=== PATIENT | male | born 1975 | race Caucasian/White ===

== ENCOUNTER 2017-04-20 22:04 | Emergency (ER) | payer OTHER ==
[~2017-04-20] VITALS: Ht 185.4 cm; Wt 118.8 kg
[2017-04-20 22:10] VITALS: TEMP 37; Ht 185.4 cm; Wt 118.8 kg
[2017-04-20] MEDS ORDERED: METF-384 PO (23:04)
[2017-04-20] MEDS ORDERED: MELO15TA4 PO (23:04)
[2017-04-20] MEDS ORDERED: PRAV20TA PO (23:04)
[2017-04-20] MEDS ORDERED: METO25TA56 PO (23:04)
[2017-04-20] MEDS ORDERED: GLIM1TAB2 PO (23:04)
[2017-04-20] MEDS ORDERED: PARO10TA3 PO (23:04)
[2017-04-20] MEDS ORDERED: LISI-461 PO (23:04)
[2017-04-21 00:17] VITALS: BP 141/108; PULSE 73; O2SAT 96
--- NOTE | 2017-04-21 05:26 | EMERGENCY ROOM VISIT NOTE ---
History First contact with patient: 22:43 Chief Complaint: LEG PAIN,LEG INJURY Stated Complaint: NUMBNESS FROM KNEE TO FOOT, RIGHT History of Present Illness The patient is a 42 year old male who presents to the Emergency Room with complaints of intermittent numbness and tingling along the lateral aspect of his right lower leg from the knee to the foot over the past one day. The patient states that he did have a fall 2 days ago, and shortly thereafter began with symptoms. The patient did not think much of the fall and states he did not injure his back or strike the knee itself. The patient is not experiencing back pain, saddle paresthesias, or difficulty using the bathroom. He is a diabetic controlled with diet and oral pills. The patient has not had fever or chills. No significant recent travel history. He rates his discomfort a 2/10. Review of Systems More than 10 systems were reviewed and otherwise negative with the exception of history of present illness. Past Medical/Surgical History History of diabetes Social History Smoking Status: Current Every Day Smoker Current/Historical Medications Scheduled Glimepiride (Glimepiride), 1 MG PO BID Lisinopril (Zestril), 10 MG PO DAILY Meloxicam (Mobic), 15 MG PO DAILY Metformin Hcl (Glucophage), 1,000 MG PO BIDM Metoprolol Tartrate (Lopressor) (Lopressor), 25 MG PO BID Paroxetine HCl (Paroxetine), 10 MG PO DAILY Pravastatin (Pravachol ), 20 MG PO DAILY Physical Exam Vital Signs Date Time Temp Pulse Resp B/P (MAP) Pulse Ox O2 Delivery O2 Flow Rate FiO2 04/21/17 00:17 73 20 141/108 96 04/20/17 22:10 37.0 79 18 177/95 97 Room Air Pain Rating (0-10): 0 Physical Exam VITALS: Vitals are noted on the nurse's note and reviewed by myself. Vital signs stable. GENERAL: Well-developed, well-nourished, white male, who is in no acute distress and resting comfortably. Patient is cooperative with the examination. HEAD: Normocephalic atraumatic. HEART: Regular rate and rhythm without murmurs gallops or rubs. LUNGS: Clear to auscultation bilaterally without wheezes, rales or rhonchi. No retractions or accessory muscle use. MUSCULOSKELETAL: No muscle atrophy, erythema, or edema noted. No evidence of infection of the right lower extremity. The patient is without obvious neurovascular deficit to the right lower extremity. Sensation and range of motion appears fully intact. No posterior calf tenderness. No palpable cord. No saddle paresthesias. No tenderness of the lower lumbar spine or SI joint. NEURO: Patient was alert and oriented to person place and time. CN II through XII grossly intact. Deep tendon reflexes 2+ throughout. Medical Decision & Procedures Laboratory Results Test 04/20/17 23:02 Bedside Glucose 394 mg/dl (70-99) ED Course Physical exam and history were performed. Nursing notes, EMR, and Medication List were personally reviewed. Patient appears to have reports of vague right lower leg intermittent numbness. On examination the patient appears intact neurologically. He did have a fall a few days ago, and because of this I did elect to perform x-rays of his back and knee. Both of these are without significant acute findings. The patient is diabetic, and his bedside glucose was 394. Evidently he has not taken his metformin today. I discussed options of care with the patient, who overall appears well for discharge home. I feel that he would likely do well with steroids, however I do not want to significantly reduce sugar. Evidently he does have meloxicam at home, and was asked to utilize this medication. His symptoms certainly could be the result of diabetic neuropathy, and he really needs to follow with his primary care physician for further management. The patient voiced understanding of this plan and was invited back to the ER with any new, worsening, or concerning symptoms. The chart was completed utilizing [employer] Speech Voice Recognition Software. Grammatical errors, random word insertions, pronoun errors, and incomplete sentences are an occasional consequence of this system due to software limitations, ambient noise, and hardware issues. Any formal questions or concerns about the content, text, or information contained within the body of this dictation should be directly addressed to the provider for clarification. . Medical Decision Differential diagnosis includes, but is not limited to: Sprain, strain, fracture , dislocation, subluxation, contusion, neuropathy, sciatica, and others Impression Primary Impression: Numbness in right leg Additional Impression: Elevated blood sugar Departure Information Dispostion Home / Self-Care Condition GOOD Forms HOME CARE DOCUMENTATION FORM, IMPORTANT VISIT INFORMATION Patient Instructions My [facility] Additional Instructions You were seen and evaluated today on an emergency basis only. This is not a substitute for, or an effort to provide, complete comprehensive medical care. It is not possible to recognize and treat all injuries or illnesses in a single emergency department visit. For this reason it is recommended that you followup with your primary care physician this week for ongoing care and evaluation. Continue your anti-inflammatory medication at home. Your symptoms may be the result of high blood sugar. You may need additional medication to help with your sugar. You are welcome to return to the emergency department anytime with new, worsening, or concerning symptoms. Problem Qualifiers
--- NOTE | 2017-04-21 06:59 | DIAGNOSTIC IMAGING REPORT ---
RIGHT KNEE 3 VIEWS CLINICAL HISTORY: 42 years-old Male presenting with RLE numbness Right. TECHNIQUE: Frontal, lateral, and sunrise views of the right knee were obtained. COMPARISON: None. FINDINGS: No acute fracture or malalignment. Minimal marginal osteophyte noted at the lateral patellar facet. No joint space narrowing or significant medial or lateral compartment degenerative change. Trace knee effusion may be present. IMPRESSION: No acute osseous injury of the right knee. Electronically signed by: Michael Mcdermott M.D. 04/21/2017 6:58 AM Dictated Date/Time: 04/21/2017 6:57 AM
--- NOTE | 2017-04-21 07:04 | DIAGNOSTIC IMAGING REPORT ---
L-SPINE MIN 4 VIEWS ROUTINE CLINICAL HISTORY: 42 years-old Male presenting with RLE numbness. TECHNIQUE: Frontal, bilateral oblique, and lateral views of the lumbar spine as well as coned in lateral view of the lumbosacral junction were obtained. COMPARISON: None. FINDINGS: Normal lumbar lordosis. Vertebral body heights and intervertebral disc space preserved. Mild extra curvature of the lumbar spine centered at L2-3. No osseous neural foraminal narrowing. Mild anterior osteophytosis noted at L2-3 without significant degenerative change elsewhere. No radiographic evidence of acute fracture or subluxation. Moderate stool burden in the right colon. Few scattered surgical clips noted. IMPRESSION: Mild degenerative change at L2-3 without radiographic evidence of osseous neural foraminal narrowing or acute osseous injury. Electronically signed by: Michael Mcdermott M.D. 04/21/2017 7:03 AM Dictated Date/Time: 04/21/2017 7:01 AM
== END 2017-04-21 00:21 | disposition home or self-care (01) ==
LOC: C.EDB 22:05 → C.EDA 04-21 00:21
DX: R20.0 Anesthesia of skin (principal); E11.65 Type 2 diabetes mellitus with hyperglycemia; F17.210 Nicotine dependence, cigarettes, uncomplicated; Z79.899 Other long term (current) drug therapy

== ENCOUNTER 2017-11-09 20:40 | Emergency (ER) | payer OTHER ==
[~2017-11-09] VITALS: Ht 185.4 cm; Wt 114.9 kg
[~2017-11-09 20:40] MED LIST: MELO-84 PO; PARO10TA3 PO
[2017-11-09 20:42] VITALS: TEMP 37.1; Ht 185.4 cm; Wt 114.9 kg
[2017-11-09] MEDS ORDERED: MoRPHine SULFATE 4 MG/ML 1 ML CARP\\VIAL IV STA (21:04)
[2017-11-09] MEDS ORDERED: ONDANSETRON INJ 2 MG/ML 2 ML VIAL IV STA (21:04)
[2017-11-09] MEDS ORDERED: CLINDAMYCIN 600 MG/54 ML D5W IV ONE (21:15)
[2017-11-09] MEDS ORDERED: OPTIRAY 320 IV PRN (21:15)
[2017-11-09] MEDS ORDERED: ACET-1256 PO (21:32)
[2017-11-09 21:43] LABS: BASO % 0.5 %; BASO ABS # 0.05 K/uL (0-0.2); EOS % 4.4 %; EOS ABS # 0.46 K/uL (0-0.5); HEMATOCRIT 53.9 % (42-52); HEMOGLOBIN 19.7 g/dL (14.0-18.0); LYMPH % 28.4 %; LYMPH ABS # 2.98 K/uL (1.2-3.4); MEAN CELL VOLUME 89.8 fL (80-100); MEAN CORPUSCULAR HEMOGLOBIN 32.8 pg (25-34); MEAN CORPUSCULAR HGB CONC 36.5 g/dl (32-36); MEAN PLATELET VOLUME 10.6 fL (7.4-10.4); MONO % 7.3 %; MONO ABS # 0.77 K/uL (0.11-0.59); NEUT % 58.4 %; NEUT ABS # 6.15 K/uL (1.4-6.5); PLATELET COUNT 277 K/uL (130-400); RED CELL DISTRIBUTION WIDTH CV 13.1 % (11.5-14.5); RED CELL DISTRIBUTION WIDTH SD 42.8 fL (36.4-46.3); WHITE BLOOD COUNT 10.51 K/uL (4.8-10.8)
[2017-11-09] MEDS ORDERED: ACETAMINOPHEN IV 100 ML IV ONE (21:45)
[2017-11-09 22:04] LABS: CALCIUM 9.3 mg/dl (8.5-10.1); CREATININE 1.01 mg/dl (0.60-1.40)
--- NOTE | 2017-11-09 22:50 | DIAGNOSTIC IMAGING REPORT ---
MAXILLOFACIAL CT WITH INTRAVENOUS CONTRAST HISTORY: hx dental abscess, worsing right facial pain, visual changes TECHNIQUE: Multiaxial CT images of the maxillofacial region were performed and reformatted in the coronal plane following the use of intravenous contrast. COMPARISON STUDY: None. FINDINGS: Small periapical lucencies measuring up to 4 mm at the roots of ADA 5. One of these demonstrates cortical breakthrough along the buccal surface best seen on image 104. Multiple dental caries are identified throughout the teeth. There is also a tiny periapical lucency at ADA 4 with an adjacent abscess along the buccal surface of the maxilla. This is best in image 150 and measures 11 x 5 mm. Mild subcutaneous gas tracking within the right maxillary/mandibular location consistent with a cellulitis. The visualized brain parenchyma and orbits are unremarkable. Paranasal sinuses and sulci are clear. A few mildly enlarged right submandibular lymph nodes are likely reactive. Prevertebral soft tissues and the epiglottis are normal in thickness. IMPRESSION: 1. An 11 x 5 mm abscess abutting the buccal surface of the right maxilla adjacent to the tiny periapical lucency at ADA 4. 2. There are also small periapical lucencies at ADA 5. Electronically signed by: Samson Oliveira M.D. 11/09/2017 10:48 PM Dictated Date/Time: 11/09/2017 10:40 PM
[2017-11-09] MEDS ORDERED: PRAV20TA PO (23:04)
[2017-11-09] MEDS ORDERED: GLIM1TAB2 PO (23:04)
[2017-11-09] MEDS ORDERED: LISI-461 PO (23:04)
[2017-11-09] MEDS ORDERED: METF-384 PO (23:04)
[2017-11-09] MEDS ORDERED: METO25TA56 PO (23:04)
[2017-11-09] MEDS ORDERED: NORCO 5/325MG HOME PACK PO ONE (23:15)
[2017-11-09] MEDS ORDERED: HYDR-5688 PO (23:16)
[2017-11-09 23:23] VITALS: BP 152/86; PULSE 70; O2SAT 97
--- NOTE | 2017-11-10 02:21 | EMERGENCY ROOM VISIT NOTE ---
ED Visit Note First contact with patient: 20:55 Chief Complaint: Right sided facial pain. History of Present Illness: Mr. Chisholm is a 42-year-old white female who ambulates into the complaining of right sided facial pain. Patient reports he was seen by his PCP 4 days ago and diagnosed with a dental abscess. He was placed on clindamycin and reports he has been taking his medication as prescribed. Patient reports his pain has been constant for the last 4 days. He reports he has had no relief from using his antibiotics. Currently he describes his pain as a burning sensation starting just lateral to the right nostril and extending up the face into the inferior aspect of the right orbit and into the anterior right side of the neck. He rates his discomfort 6/10. He denies radiation of his pain. He has not been taking acetaminophen for pain prior to arrival at the hospital without relief of his discomfort. Associated with his pain he reports he has been having chills but no sonia fevers. Associated with his pain he reports he has mild visual changes of the right eye, a decreased appetite and his blood sugar has been elevated. He denies headache, dizziness, lightheadedness, hearing changes some throat pain , difficulty swallowing, difficulty speaking, flashing lights, floaters, eye drainage, decrease in overall vision, chest pain, shortness of breath, abdominal pain, nausea, vomiting. Review of Systems: As noted above in history of present illness. All body systems were reviewed and found to be negative as noted above. Past Medical History: Diabetes, heart disease, hypertension, status post hernia repair, bowel reconstruction, cardiac ablation. Current Medications: Mobic, Pravachol, Zestril, Glucophage, Lopressor, acetaminophen and glimepiride. Allergies to Medications: Amoxicillin, ciprofloxacin, NicoDerm. Social History: Patient is currently employed; he feels safe in his home environment; he admits to tobacco use and denies alcohol use. Physical Examination: Vital Signs: Date Time Temp Pulse Resp B/P (MAP) Pulse Ox O2 Delivery O2 Flow Rate FiO2 11/09/17 23:23 70 20 152/86 97 11/09/17 22:41 73 20 154/84 96 Room Air 11/09/17 21:50 75 20 135/87 91 Room Air 11/09/17 21:22 87 22 157/87 96 Room Air 11/09/17 20:42 37.1 87 16 146/87 97 Room Air GENERAL: 42-year-old male in moderate distress due to pain, nontoxic-appearing, afebrile and hemodynamically stable. NEUROLOGICAL: Awake, alert and oriented to person, place and time. Answering questions appropriately and following commands. Normal gait. Good hand eye coordination. No focal motor or sensory deficits. SKIN: Warm, dry and pink. HEENT: Atraumatic and normocephalic. Face: Moderate erythema and tenderness over the right side of the face extending just inferior to the nose on the right and extending superiorly to the inferior orbital area. The skin is warm to the touch but does not appear cellulitic. There is no lymphangitis. No palpable abscesses. Able to distinguish light sensations to all dermatomes of the face. No facial drooping. PERRLA. EOMI without nystagmus. Sclera white and conjunctiva pink without drainage. Visual Acuity: Right 20/25 without correction, Left 20/40 without correction. No foreign bodies noted under the eyelids are embedded in the cornea. Anterior chamber is clear. No drainage from naris. Airway is patent. Patient has multiple areas of dental decay. There is moderate tenderness in the area of teeth 3 through 5. There is mild erythema of the maxillary gingiva with tenderness but no palpable abscess. Airway is patent. Speech is normal and clear. No cervical or submandibular lymphadenopathy. Trachea midline. No jugular venous distention. THORAX: Lungs sounds are clear to auscultation and equal bilaterally with symmetrical chest wall. ABDOMEN: Flat, soft and nontender. Positive bowel sounds in all quadrants. No guarding, rigidity or organomegaly. ED Course: Patient is assessed as noted above. Patient's medication list was reviewed. Laboratory Testing: Test 11/09/17 21:15 Range/Units White Blood Count 10.51 4.8-10.8 K/uL Red Blood Count 6.00 4.7-6.1 M/uL Hemoglobin 19.7 14.0-18.0 g/dL Hematocrit 53.9 42-52 % Mean Corpuscular Volume 89.8 80-100 fL Mean Corpuscular Hemoglobin 32.8 25-34 pg Mean Corpuscular Hemoglobin Concent 36.5 32-36 g/dl Platelet Count 277 130-400 K/uL Mean Platelet Volume 10.6 7.4-10.4 fL Neutrophils (%) (Auto) 58.4 % Lymphocytes (%) (Auto) 28.4 % Monocytes (%) (Auto) 7.3 % Eosinophils (%) (Auto) 4.4 % Basophils (%) (Auto) 0.5 % Neutrophils # (Auto) 6.15 1.4-6.5 K/uL Lymphocytes # (Auto) 2.98 1.2-3.4 K/uL Monocytes # (Auto) 0.77 0.11-0.59 K/uL Eosinophils # (Auto) 0.46 0-0.5 K/uL Basophils # (Auto) 0.05 0-0.2 K/uL RDW Standard Deviation 42.8 36.4-46.3 fL RDW Coefficient of Variation 13.1 11.5-14.5 % Immature Granulocyte % (Auto) 1.0 % Immature Granulocyte # (Auto) 0.10 0.00-0.02 K/uL Sodium Level 135 136-145 mmol/L Potassium Level 4.0 3.5-5.1 mmol/L Chloride Level 100 98-107 mmol/L Carbon Dioxide Level 26 21-32 mmol/L Anion Gap 9.0 3-11 mmol/L Blood Urea Nitrogen 11 7-18 mg/dl Creatinine 1.01 0.60-1.40 mg/dl Est Creatinine Clear Calc Drug Dose 129.1 ml/min Estimated GFR () 107.3 Estimated GFR (Non- 92.6 BUN/Creatinine Ratio 10.9 10-20 Random Glucose 436 70-99 mg/dl Calcium Level 9.3 8.5-10.1 mg/dl Beta-Hydroxybutyric Acid 1.46 0.2-2.81 mg/dL Contrast Facial CT: Was reviewed by myself and read by the radiologist showing an 11 x 5 mm abscess of buttoning the pupil surface of the right maxilla adjacent to a tiny periapical lucency of tooth 4 and small periapical lucencies at tooth 5. There are also a few mildly enlarged right submandibular lymph nodes. Mild subcutaneous gas tracking within the right maxillary/mandibular location consistent with facial cellulitis. Visualized brain parenchyma oil and orbits are unremarkable. Prevertebral tissues and epiglottis are of normal thickness. Patient was originally offered morphine for pain and refused. Patient did accept 1 g of acetaminophen IV for pain. Additionally he received 4 mg of Zofran IV for nausea and 600 mg of clindamycin IV for additional antibiotic coverage. Patient was reassessed multiple times during her stay in the emergency department. Patient's case was reviewed with Dr. Nelson; we agreed on diagnostic approach, treatment, disposition and plan. Patient was educated about today's findings and instructed on his treatment plan ; he verbalized understanding and agreement with this plan. Clinical Impression: Right maxillary dental abscess and cellulitis. Hyperglycemia. Disposition: Patient discharged home in stable condition; prior to departure he was reassessed and subjectively reported he was feeling slightly better and rated his discomfort 5/10. Plan: Dental abscess Patient was encouraged to continue his clindamycin until completed. Patient was placed on a sliding pain scale of ibuprofen, acetaminophen and Deane ; his name was checked on state database and no red flags were noted and he was given appropriate narcotic precautions. Patient was encouraged to avoid tobacco use and to clean his mouth frequency with brushing, flossing and gargling with salt water. Patient was encouraged to follow-up with dentistry for definitive care and treatment. Patient was encouraged to return to the ED for worsening/uncontrolled pain, worsening fever, worsening swelling/redness of the face or any new/concerning symptoms. Hyperglycemia Patient was encouraged to continue his current diabetic medication and to call his family physician in the morning and inform them of his hyperglycemia related to his current infection and requests follow-up care and treatment and possible additional diabetic medication. Patient was encouraged to return the ED for worsening blood sugars or any new/ concerning symptoms.
== END 2017-11-09 23:24 | disposition home or self-care (01) ==
LOC: C.EDB 20:41 → C.EDC 23:24
DX: K04.7 Periapical abscess without sinus (principal); K12.2 Cellulitis and abscess of mouth; E11.65 Type 2 diabetes mellitus with hyperglycemia; I10 Essential (primary) hypertension; F17.200 Nicotine dependence, unspecified, uncomplicated; Z79.1 Long term (current) use of non-steroidal anti-inflammatories (NSAID); Z79.84 Long term (current) use of oral hypoglycemic drugs; Z88.1 Allergy status to other antibiotic agents; Z88.8 Allergy status to other drugs, medicaments and biological substances; Z87.19 Personal history of other diseases of the digestive system